=== PATIENT | male | born 1995 | race African-American/Black ===

== ENCOUNTER 2016-12-22 13:11 | Emergency (ER) | payer OTHER ==
[2016-12-22 13:15] VITALS: BP 96/63; PULSE 69; TEMP 97.5; BMI 25.0
[2016-12-22 13:54] LABS: URINE APPEARANCE CLEAR; URINE BILIRUBIN NEGATIVE (NEGATIVE); URINE BLOOD NEGATIVE (NEGATIVE); URINE COLOR YELLOW; URINE GLUCOSE (UA) NEGATIVE (NEGATIVE); URINE KETONE TRACE (NEGATIVE); URINE LEUK ESTERASE NEGATIVE (NEGATIVE); URINE NITRITE NEGATIVE (NEGATIVE); URINE UROBILINOGEN 2.0 E.U/dl E.U./dl (0.2-1.0)
[2016-12-22] MEDS ORDERED: KETOROLAC TROMETHAMINE 30 MG/1 ML VIAL IM ONE (13:57)
[2016-12-22 13:58] LABS: URINE PROTEIN 1+ (NEGATIVE)
[2016-12-22 14:00] LABS: URINE HYALINE CAST 7 /lpf; URINE MUCUS MANY; URINE RBC <1 /hpf (0-3); URINE WBC 1 /hpf (3-5)
[2016-12-22] MEDS ORDERED: KETOROLAC TROMETHAMINE 30 MG/1 ML VIAL ONE (14:00)
--- NOTE | 2016-12-22 14:05 | PDOC ---
History of Present Illness - General Chief Complaint: Pain Stated Complaint: LEG PAIN, STD TESTING Time Seen by Provider: 12/22/16 13:38 - History of Present Illness Initial Comments: 12/22/16 13:59 CHIEF COMPLAINT: R calf pain HISTORY OF PRESENT ILLNESS: 21 yo M with hx of asthma [facility]. Patient states his calf has been hurting for about 2-3 weeks and he was recently evaluated at a hospital in the [place] and was given Motrin, but his calf continues to hurt. Patient reports playing basketball earlier today. He denies any shortness of breath, chest pain, palpitations, or swelling of the right leg. Patient also reports that he thinks he has an STD due to pain with urination and would like to be treated for it. No recent travel or sick contacts. PAST MEDICAL HISTORY: asthma FAMILY HISTORY: Denies SOCIAL HISTORY: Current daily smoker, 3-4 cigarettes daily. Marijuana use, 1- 2x monthly. SURGICAL HISTORY: Denies ALLERGIES: shellfish REVIEW OF SYSTEMS General/Constitutional: Denies fever or chills. HEENT: Denies change in vision. Denies ear pain or discharge. Denies sore throat. Cardiovascular: Denies chest pain or shortness of breath. Respiratory: Denies cough, wheezing, or hemoptysis. Gastrointestinal: Denies nausea, vomiting, diarrhea or constipation. Genitourinary: Painful urination. Denies discharge or hematuria. Musculoskeletal: Pain to right calf. Skin and breasts: Denies rash or easy bruising. PHYSICAL EXAM General Appearance: Well-appearing, appropriately dressed. No apparent distress , no intoxication. HEENT: EOMI, PERRLA, normal voice. No conjunctival pallor. No photophobia, scleral icterus. Respiratory/Chest: Lungs CTAB. Cardiovascular: RRR. S1, S2. Vascular Pulses: Dorsalis-Pedis (R): 2+, Dorsalis-Pedis (L): 2+ Musculoskeletal/Extremities: Tenderness to right calf, no erythema, warmth, edema. Normal inspection. FROM of all extremities, normal capillary refill. Pelvis Stable. No CVA tenderness. No tenderness to extremities, pedal edema, swelling, erythema or deformity. Integumentary: Appropriate color, dry, warm. 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 Fully oriented, alert. Appropriate mood/affect. Motor strength 5/5. No appreciable EOM palsy, facial droop or sensory deficit. Past History - Past Medical History Allergies/Adverse Reactions: Allergies Allergy/AdvReac Type Severity Reaction Status Date / Time shellfish derived Allergy Verified 12/22/16 13:15 Home Medications: Ambulatory Orders Naproxen 250 mg PO BID #14 tablet 12/22/16 Asthma: Yes - Immunization History Immunization Up to Date: No - Psycho/Social/Smoking Cessation Hx Anxiety: No Suicidal Ideation: No Smoking History: Current every day smoker Have you smoked in the past 12 months: Yes Number of Cigarettes Smoked Daily: 3 Information on smoking cessation initiated: Yes 'Breaking Loose' booklet given: 12/22/16 Hx Alcohol Use: Yes (SOCIAL) Drug/Substance Use Hx: No Substance Use Type: Marijuana *Physical Exam - Vital Signs Last Vital Signs Temp Pulse Resp BP Pulse Ox 97.5 F L 69 20 96/63 100 12/22/16 13:11 12/22/16 13:11 12/22/16 13:11 12/22/16 13:11 12/22/16 13:11 ED Treatment Course - ADDITIONAL ORDERS Additional order review: Laboratory Results 12/22/16 13:40 Urine Color Yellow Urine Appearance Clear Urine pH 5.0 Ur Specific [place] 1.032 Urine Protein 1+ H Urine Glucose (UA) Negative Urine Ketones Trace H Urine Blood Negative Urine Nitrite Negative Urine Bilirubin Negative Urine Urobilinogen 2.0 e.u/dl Ur Leukocyte Esterase Negative Medical Decision Making - Medical Decision Making 12/22/16 14:05 21 yo M with hx of asthma [facility] with R calf pain and painful urination. -30 mg IM Toradol. -250 mg ceftriaxone IM -1g azithromycin po script for 250 mg naproxen bid sent to pharm. Patient states his calf is feeling better at this time "but still hurts a little." Advised patient to take medication as prescribed and f/u with orthopedist. Advised patient of signs and symptoms for return to ER; patient verbalized understanding and agrees to plan. *DC/Admit/Observation/Transfer Diagnosis at time of Disposition: Sexually transmitted disease in male, Right calf pain - Discharge Dispostion Admit: No - Prescriptions Prescriptions: Naproxen 250 mg PO BID #14 tablet - Referrals Referrals: Guanaco Yates MD [Staff Physician] - - Patient Instructions Printed Discharge Instructions: DI for Calf Muscle Strain, Facts About Sexually Transmitted Infections Additional Instructions: Please take medication as prescribed. Follow up with orthopedist as discussed. If you experience any swelling or redness of your calf, or develop any chest pain, shortness of breath, or palpitations, please return to the ER immediately.
[2016-12-22] MEDS ORDERED: AZITHROMYCIN 250 MG TABLET (FP) PO ONE (14:22)
[2016-12-22] MEDS ORDERED: AZITHROMYCIN 1 GM PACKET ONE (14:29)
== END 2016-12-22 14:39 | disposition home or self-care (01) ==
LOC: JERFT 13:11
PROC: 3E0233Z Introduction of Anti-inflammatory into Muscle, Percutaneous Approach (ICD-10-PCS; principal; 2016-12-22)
PROC: 3E02329 Introduction of Other Anti-infective into Muscle, Percutaneous Approach (ICD-10-PCS; 2016-12-22)
DX: M79.661 Pain in right lower leg (principal); Z20.2 Contact with and (suspected) exposure to infections with a predominantly sexual mode of transmission
CPT/HCPCS: 36415; 81003; 81015; 87086; 87491; 87591; 99281-25